=== PATIENT | female | born 2000 | race Caucasian/White ===

== ENCOUNTER 2023-12-19 20:06 | Observation (INO) | payer BC, SELFPAY ==
--- NOTE | 2023-12-19 20:06 | OBADM ---
This patient, Thiago Sadler, admitted to the OB room OB Post 117 for observation. Patient/family oriented to hospital policies and general routines including ID bracelet, bed and alarms, visiting hours, pain management, procedures, bathroom and other care routines, personal items, smoking policy, room service/diet, and visiting hours. Patient/Family are encouraged to report perceived risks to care and to ask questions if they do not understand what they are told or what they should do.
[2023-12-19 20:15] VITALS: BMI 22.4
[2023-12-19 20:40] VITALS: BP 104/59; PULSE 69
[2023-12-19 20:54] LABS: Appearance Urine Clear (Clear); Bilirubin Urine Negative (Negative); Blood Urine Negative (Negative); Color Urine Yellow (Yellow); Glucose Urine UA Negative (Negative); Ketones Urine Negative (Negative); Leukocyte Esterase Ur Negative LEU/UL (Negative); Nitrate Urine Negative (Negative); Protein Urine Negative (Negative); Specific Grav Ur 1.015 (1.001-1.035)
[2023-12-19 21:05] LABS: Add Urine Microscopic? NO
--- NOTE | 2024-01-15 20:46 | P.PNOB_ITS ---
OB - Triage/Final Diagnosis Visit Information Comments/Additional reasons for admission: I have assessed the risk for this patient, Thiago Sadler, and determined that she would benefit from observation care. Evaluation Laboratory results: Laboratory Tests 12/19/23 20:45 Urine Color Yellow Urine Appearance Clear Urine pH 7.0 Ur Specific [place] 1.015 Urine Protein Negative Urine Glucose (UA) Negative Urine Ketones Negative Ur Blood (Man) Negative Urine Nitrate Negative Urine Bilirubin Negative Urine Urobilinogen 1.0 Leukocyte Esterase Rfl Negative Final Diagnosis (1) Pubic bone pain: Code(s): M89.9 - Disorder of bone, unspecified Status: Acute
== END 2023-12-19 22:17 | disposition home or self-care (01) ==
PROVIDERS: Admitting Provider Obstetrics & Gynecology; Visit Provider Obstetrics & Gynecology
DX: O26.892 Other specified pregnancy related conditions, second trimester (principal); M89.9 Disorder of bone, unspecified; Z3A.25 25 weeks gestation of pregnancy
CPT/HCPCS: 81003; G0378; G0379

== ENCOUNTER 2024-03-26 05:02 | Inpatient (IN) | payer BC, MEDICAID, SELFPAY ==
[2024-03-26] VITALS (239 sets, daily range): BP systolic 86–143; BP diastolic 44–111; PULSE 50–128; TEMP 36.2–37.9; O2SAT 81–100; BMI 24.5
--- NOTE | 2024-03-26 05:41 | LDADM ---
This patient, Thiago Sadler, was admitted to Labor/Delivery/Recovery 104 on 03/26/24 at 05:02. Plans for labor, pain management and were discussed with patient. Patient/family oriented to hospital policies and general routines including ID bracelet, bed and alarms, visiting hours, pain management, procedures, bathroom and other care routines, personal items, smoking policy, room service/diet and guest tray routines, security routines, and visiting hours. Patient/Family are encouraged to report perceived risks to care and to ask questions if they do not understand what they are told or what they should do. See OBIX for further documentation.
[2024-03-26 05:49] LABS: Basophils Percent Auto 0.1 % (0.2-1.2); Eosinophils Percent Auto 0.4 % (0-4.4); Hematocrit 38.4 % (37.0-47.0); Hemoglobin 13.2 g/dL (12.0-15.0); Immature Granulocyte Absolute 0.02 K/mm3 (0.00-0.031); Immature Granulocyte Percent A 0.2 % (0-0.5); Lymphocytes Absolute Auto 2.48 K/mm3 (0.9-3.2); Mean Corpuscular HGB Conc 34.4 g/dl (32-36); Mean Platelet Volume 10.6 fl (7.4-10.4); Monocytes Absolute Auto 0.5 K/mm3 (0.1-0.6); Monocytes Percent Auto 5.6 % (2.6-8.5); Neutrophils Absolute Auto 5.5 K/mm3 (1.3-6.7); Neutrophils Percent Auto 64.7 % (45.5-73.1); Platelet Count Result 166 k/mm3 (150-375); Red Blood Count 3.88 M/mm3 (4.2-5.4); Red Cell Distribution Width 12.4 % (11.5-14.5); White Blood Count 8.5 K/mm3 (4.5-10.0)
[2024-03-26 06:26] LABS: Glucose 134 mg/dL (65-110)
[2024-03-26] MEDS: OXYTOCIN 30 UNITS/NS 500 ML 30 UNITS/500 ML BAG 6 UNITS IV CONT (06:34)
[2024-03-26] MEDS: LACTATED RINGERS 1,000 ML 125 ML IV CONT ×3 (06:38→18:15)
[2024-03-26 06:41] LABS: HIV 1/2 Ab P24 Ag Result Negative (Negative)
--- NOTE | 2024-03-26 07:41 | WPDANESEPP ---
Anes - Eval Pre Procedure Procedure: Labor epidural Date/Time: 03/26/24 07:41 Surgeon: Heide Preop Diagnosis: Abdominal pain with contractions Pre Op Diagnosis: IOL Patient Data Age: 23 Gender: F Height: 1.57 m Weight: 61 kg Last Vital Signs Temp 97.1 F L 03/26/24 06:08 Pulse 62 03/26/24 07:31 BP 118/68 03/26/24 07:31 O2 Del Method Room Air 03/26/24 05:40 Allergies Allergy/AdvReac Type Severity Reaction Status Date / Time cat dander Allergy Hives Verified 03/23/24 15:08 Home Medications Medication Instructions Recorded Confirmed Type vits no.126-ferrous fum 1 tablet PO DAILY 03/23/24 03/23/24 History 28 mg iron-folic acid 800 mcg tablet (Classic ) Laboratory Tests 03/26/24 05:16 WBC 8.5 K/mm3 (4.5-10.0) RBC 3.88 L M/mm3 (4.2-5.4) Hgb 13.2 g/dL (12.0-15.0) Hct 38.4 % (37.0-47.0) MCV 99.0 fl (80-100) MCH 34.0 pg (26-34) MCHC 34.4 g/dl (32-36) RDW 12.4 % (11.5-14.5) Plt Count 166 k/mm3 (150-375) MPV 10.6 H fl (7.4-10.4) Immature Gran % (Auto) 0.2 % (0-0.5) Neut % (Auto) 64.7 % (45.5-73.1) Lymph % (Auto) 29.0 % (18.3-44.2) [place] % (Auto) 5.6 % (2.6-8.5) Eos % (Auto) 0.4 % (0-4.4) Baso % (Auto) 0.1 L % (0.2-1.2) Lymph # (Auto) 2.48 K/mm3 (0.9-3.2) [place] # (Auto) 0.5 K/mm3 (0.1-0.6) Eos # (Auto) 0.0 K/mm3 (0-0.3) Baso # (Auto) 0.0 K/mm3 (0.0-0.1) Abs Immat Gran (auto) 0.02 K/mm3 (0.00-0.031) Absolute Neuts (auto) 5.5 K/mm3 (1.3-6.7) Absolute Nucleated RBC 0.000 K/mm3 (0.0-0.012) Nucleated RBC % 0.0 % (0.0-0.2) Glucose 134 H mg/dL (65-110) RPR Pending HIV 1&2 Ab/P24 Ag 4thGn Negative (Negative) Blood Type O Positive Antibody Screen Negative : gestational age HCG: positive Patient hx anesthesia problems: none Family hx anesthesia problems: none Results Review: All pre-operative results and documents have been reviewed as part of the pre-operative evaluation. FOR[facility]LY [facility] Past Medical History Medical History History of smoking Migraines and not yet delivered Family History Family History Other Unknown family medical history Social History Social History Smoking status: Former smoker Tobacco type: e-cigarettes/vaping Second hand tobacco smoke exposure: Yes Substance use: never Do You Feel Safe in your Home?: Yes Lack of Transportation: No Lack of Food: Never True Current Housing: I Have Housing Concerned About Future Housing: No Difficulty Paying Gas/Electric Bills: No Difficulty Paying for Meds: No Currently Unemployed: No Education: High School Diploma/GED Difficulty w/ Childcare or Family Care: No Spiritual care concerns: No Exam Day of Procedure 03/26/24 07:41 Patient weight: normal Airway: Mallampati scale class II
--- NOTE | 2024-03-26 07:47 | WPDHPUPDATE1 ---
History and Physical Update Update Date/Time: 03/26/24 07:47 This patient is a 23-year-old primiparous female at term. we agreed to elective induction labor. She is a diet-controlled Diabetic. Excellent control. Artificial rupture membranes was performed-clear fluid. Cervix is 2/70/-2. Reassuring status. Pitocin has been running. Expectant management History and Physical has been reviewed, including an updated exam of the patient. There are NO changes in the patient's condition. Risks, benefits, and alternatives have been discussed and questions answered. Patient agrees to proceed with procedure.
--- NOTE | 2024-03-26 08:24 | W.PM.OBCSD ---
OB - Delivery Note Procedure Delivery date: 03/26/24 Pre-op diagnosis: Previous Delivery Post-op Diagnosis: Same Procedure Performed: Repeat Surgeon: Efe Jaeger MD Anesthesia type: Spinal Description of Procedure/Findings: The patient was taken the operating room.? She was prepped and draped in dorsal supine position with a leftward tilt.? This was done after spinal anesthetic was applied.? A low-transverse skin incision was made and carried down till of the fascia with the knife.? The fascial incision was made with the knife.? The fascial incision was extended laterally with Escalera scissors.? The fascia was tented upward superiorly and inferiorly the rectus muscles were dissected off bluntly.? The rectus muscles were the midline.? The preperitoneal fat and peritoneum were dissected open bluntly at the superior aspect of the rectus muscles.? The peritoneal incision was extended superior and inferior with good position of bladder.? The uterine incision was made with a scalpel down to the level of the amniotic cavity.? The amniotic cavity was entered bluntly.? The infant was delivered.? The cord was clamped and cut and the infant was handed off to waiting pediatric staff.? Cord bloods were obtained.? The placenta was removed manually.? The uterus was exteriorized.? The uterus was cleared of all clots, debris and membranes.? The uterus was closed in 0 Vicryl running lock fashion.? An imbricating over a was placed along the incision line as well.? The uterus was returned to the abdomen.? The gutters were cleared of all clots and debris.? The fascia was closed with 0 Vicryl running fashion.? The subcutaneous tissue was irrigated pinpoint bleeders were cauterized.? The skin was closed with subcuticular absorbable saleem.? The skin incision line was covered with glue.? The patient tolerated the procedure well.? She has taken recovery room in stable condition.? Sponge lap and needle counts were correct x2.?
[2024-03-26 10:01] LABS: Glucose Point of Care 92 mg/dl (65-105)
[2024-03-26 12:32] LABS: Rapid Plasma Reagin Non-Reactive (NonReactive)
[2024-03-26 13:29] LABS: Glucose Point of Care 89 mg/dl (65-105)
[2024-03-26 16:17] LABS: Glucose Point of Care 77 mg/dl (65-105)
[2024-03-26 18:09] LABS: Glucose Point of Care 79 mg/dl (65-105)
[2024-03-26] MEDS: ACETAMINOPHEN 500 MG TABLET 1000 MG PO (19:30)
[2024-03-26] MEDS: diphenhydrAMINE HCl INJ 50 MG/ML VIAL 25 MG IV PUSH (19:33)
[2024-03-26 20:27] LABS: Glucose Point of Care 74 mg/dl (65-105)
--- NOTE | 2024-03-26 21:30 | P.PCNOB_ITS ---
OB - Vaginal Delivery Note Procedure Delivery date: 03/26/24 Induction method: AROM and Per Pitocin Protocol Delivery monitor: External FHT and External Uterine Route of delivery: Episiotomy description: None Laceration Description: Periurethral Delivery repair: vicryl Quantitative Blood Loss (ml): 200 Anesthesia type: Spinal Complications: No immediate complications [place] Baby Date of : 03/26/24 Time of : 21:11 Gestational Age by Date: 39
[2024-03-26] MEDS: OXYTOCIN 30 UNITS/NS 500 ML 30 UNITS/500 ML BAG 125 UNITS IV CONT (21:56)
[2024-03-26] MEDS: IBUPROFEN 600 MG TABLET PO (23:40)
--- NOTE | 2024-03-26 23:44 | PC.NURSE ---
Patient transferred to post room #288 via wheelchair. Support person present. Oriented to unit, room, information board, rooming in, admission packet and security measures. Patient verbalizes understanding.
[2024-03-27] VITALS: BP 114/59; PULSE 69; RESP 16; TEMP 37.7; O2SAT 98
[2024-03-27 03:50] VITALS: BP 112/59; PULSE 61; RESP 16; TEMP 37; O2SAT 97
[2024-03-27 04:36] LABS: Hemoglobin 10.9 g/dL (12.0-15.0)
--- NOTE | 2024-03-27 06:20 | PC.NURSE ---
Introductions were made, then consulted with patient to assess needs related to . Mother led the conversation with her?plans to feed?her and the?experience so far. Mother states that was very sleepy throughout the night and did not breastfeed successfully, however, she did pump and was able to feed infant 8cc of expressed breast milk by syringe at the last feeding. Mother would like to exclusively breastfeed. Encouraged understanding of the benefits of skin to skin, stimulating with massage touch, changing positions to encourage wakefulness, how to watch for early feeding cues, responsive feeding, feeding on demand (aiming for 8-12 times in 24 hours, about every 2-3 hours), milk production, building/maintaining a milk supply, duration of feeding, signs of adequate intake/output and how to record on the feeding sheet. Mother works well with her infant. After showing mother different positions to hold in for nursing, she appeared to be very comfortable holding infant for feeding. Reviewed positioning and ear, shoulder, hip alignment, supporting the breast to facilitate a deep latch, asymmetrical latch (off-center), leading with the chin with a big, open, wide gape and body close to mother. latched optimally to the right breast in football position. A nipple shield was attempted throughout the night due to infants inability to maintain a latch. A nipple shield was used for the first 2 minutes of nursing and then removed. Infant latched successfully without the nipple shield. Education given to the mother of how to visualize the suckling (with good rocking jaw motion), swallows (dropping of the lower jaw) and how to listen for drinking at the breast (the ka sound). Several swallows were noted by this RN. was able to maintain latch without pain to mother protecting the nipple with optimal positioning and latching. 10 minutes of this feeding was observed by this RN. actively nursing when exiting patients room. Reviewed comfort measures of healing with a warm, wet washcloth to rinse breast, then leave open to air-dry, good handwashing when or touching the breast/nipples to prevent infection. Mother voiced understanding of skin to skin, stimulating with massage touch, responsive feedings, hand expressed colostrum, talking to infant to encourage if it has been 2 -2.5 hours since the start of the last , to call if does not latch, or if there is discomfort with . Communication board updated with contact information. Patient knows to call if assistance is needed for next feeding. Reported to the Primary RN.
[2024-03-27] MEDS: DOCUSATE SODIUM 100 MG CAPSULE PO ×2 (07:25→17:12)
[2024-03-27] MEDS: MULTIVIT/MIN/PREN/FOL AC/IRON TABLET 1 TAB PO (07:25)
[2024-03-27] MEDS: ACETAMINOPHEN 325 MG TABLET 650 MG PO ×2 (07:25→17:12)
[2024-03-27 07:55] VITALS: BP 96/50; PULSE 60; RESP 16; TEMP 36.3; O2SAT 98
[2024-03-27] MEDS: IBUPROFEN 600 MG TABLET PO (11:38)
[2024-03-27 12:05] VITALS: BP 107/51; PULSE 67; RESP 16; TEMP 36.2; O2SAT 98
--- NOTE | 2024-03-27 14:54 | WPDANLDPN2 ---
Anes-Prog Note L&D Date/Time: 03/27/24 14:54 Comfortable throughout: labor and delivery Neuraxial method: epidural Epidural/Spinal procedure site: clean & non-tender Neuro status: Neuro function grossly intact. Cardiovascular status: normal Respiratory status: normal Airway patency: baseline Mental status: baseline Post-Op hydration status: normal Vital Signs: Last Vital Signs Temp 36.2 C L 03/27/24 12:05 Pulse 67 03/27/24 12:05 Resp 16 03/27/24 12:05 BP 107/51 L 03/27/24 12:05 Pulse Ox 98 03/27/24 12:05 O2 Del Method Room Air 03/27/24 11:30 Pain score (VAS): 0/10 I/O: Intake & Output 03/26/24 03/27/24 03/27/24 23:59 07:59 15:59 Intake Total 1000 0 Output Total 200 Balance 800 0 Post-procedural complaints: none Patient feedback: Patient satisfied with anesthetic care.
--- NOTE | 2024-03-27 15:12 | PC.NURSE ---
3328. Mom called out for help & help with latching . Mom made mulitple attempts to latch to the breast in cross cradle position. No successful attempts made. Reviewed attempting to wake with a diaper change, turning the lights on, removing some of her clothing. More attempts made, showed no signs of feeding cues. Mom encouraged to do s2s and wait for infants first early feeding cue and attempt again. Mom knows to call when she attempts next for assistance.
--- NOTE | 2024-03-27 15:36 | PM.OBPNVD ---
OB - PN: Subj Subjective Date/time seen: 03/27/24 15:36 Interval history: PPD#1 s/p Doing well, pain controlled Voiding without issue OB - PN: Obj Data Labs 03/27/24 04:00 03/26/24 05:16 Labs: Laboratory Results - last 24 hr 03/26/24 03/26/24 03/26/24 16:03 18:07 20:24 Hgb Hct POC Capillary Glucose 77 79 74 03/27/24 04:00 Hgb 10.9 L Hct 31.0 L POC Capillary Glucose OB - PN A/P Assessment and Plan (1) (spontaneous vaginal delivery): Code(s): O80 - Encounter for full-term uncomplicated delivery Status: Acute Plan day: 1 Plan: routine care Time Spent With Patient Time: Total time spent is greater than 50% in coordination of care (as documented) at patient's floor/unit and/or counseling patient: Review of Systems Review of Systems: All systems reviewed & are unremarkable except as noted in HPI and below Exam Const: General: comfortable and no acute distress Orientation/consciousness: patient oriented x3 Resp: Effort & Inspection: normal respiratory effort
--- NOTE | 2024-03-27 15:36 | PC.NURSE ---
1530. Mom called, reported infant was showing feeding cues and needed help getting her latched. was able to latch a couple times, but slipped off to the end of moms nipple. Reviewed positioning with mom. Infants head, neck, and shoulders were not in line, demonstrated proper alignment to mom by helping her reposition infant on her chest. Infants head was not in the sniffing position , reviewed what that should look like by helping mom move into the correct position. Infant was syringe fed moms EBM (4cc) by RN to encourage her to continue with her feeding. was able to latch into an optimal latch and transferring milk was confirmed with audible swallows heard. Mom encouraged to continue to let nurse as long as she wanted at the breast and offer the other side after about 15 min. Mom verbalized understanding and knows to call again if more assistance is required.
[2024-03-27 20:56] VITALS: BP 128/78; PULSE 68; RESP 16; TEMP 36.8; O2SAT 100
--- NOTE | 2024-03-28 07:32 | PM.OBPNVD ---
OB - PN: Subj Subjective Date/time seen: 03/28/24 07:32 Interval history: PPD#1 s/p Doing well, pain controlled Voiding without issue Patient comments: no complaints, pain well controlled and tolerating diet OB - PN: Obj Data Labs 03/27/24 04:00 03/26/24 05:16 OB - PN A/P Plan day: 2 Plan: routine care and discharge home Time Spent With Patient Time: Total time spent is greater than 50% in coordination of care (as documented) at patient's floor/unit and/or counseling patient: Exam Const: General: comfortable and no acute distress Resp: Effort & Inspection: normal respiratory effort Auscultation: no rales, no rhonchi and no wheezes Cardio: Rate: regular rate Heart sounds: no click, no murmurs and no rubs GI: GI Palp: Yes Soft to palpation and No Tenderness to palpation present (GI) Auscultation: normal bowel sounds Extrem: General: normal to inspection, no pedal edema and no calf tenderness
--- NOTE | 2024-03-28 07:32 | PM.OBDSVD ---
DS: Admitting Diagnosis Discharge Date March 28, 2024 Admitting Diagnosis term DS: Discharge Diagnosis Discharge Diagnosis (1) Term delivered: Code(s): O80 - Encounter for full-term uncomplicated delivery Status: Acute OB - DS: Summary OB Procedures : None OB Procedures Intrapartum: Spontaneous Vag Delivery OB Procedures: : None Peripartum Data Laceration Description: Periurethral Episiotomy description: None Time Spent with Patient Time attestation: Total time spent providing and/or coordinating discharge services: Discharge Plan Discharge Discharging Clinician: Efe Jaeger Patient Disposition: Home, Self-Care Activity: pelvic rest Diet: regular Patient Instructions: Antibiotic Form Stand Alone Forms: General Discharge Information Follow-up/Referrals: Efe Jaeger MD [Physician] - Discharge Medications: Continued Classic 28 mg iron- 800 mcg Tablet 1 tablet PO DAILY Date of admission: 03/26/24 05:02 Primary Care Provider: UNKNOWN,DOCTOR Admitting Provider: Efe Jaeger Attending physician on admission: Efe Jaeger Condition: Stable
--- NOTE | 2024-03-28 08:45 | PC.NURSE ---
Called to patient room to assist with latching. Upon entering room, was sleeping and mom was attempting to wake for feeding. Mom states that infant can be hard to wake for feedings. Once infant was awake, infant latched to the right side in cross cradle position. Mother denies pain. Otherwise, mother is feeding appropriately for growth of and understands stimulating to eat if needed. has had appropriate feedings in the last 24 hours meets the outcomes for weight, output, blood sugar and jaundice at this time. Reinforced understanding of milk production, transition of milk, signs of adequate intake, transition of stool, prevention/relief of engorgement, plugged ducts, mastitis, responsive watching for feeding cues, the different methods of stimulating infant to breastfeed 1-3 hours after the start of the last feeding, community resources, and when to call a provider using the resource of the feeding sheet along with the mom and baby guide. Mother voiced understanding of the information shared, is confident to continue effectively her infant at home, when to call for assistance, denies any additional assistance or education at this time. Reported to the Primary RN.
[2024-03-28] MEDS: DOCUSATE SODIUM 100 MG CAPSULE PO (09:09)
[2024-03-28] MEDS: MULTIVIT/MIN/PREN/FOL AC/IRON TABLET 1 TAB PO (09:09)
[2024-03-28] MEDS: IBUPROFEN 600 MG TABLET PO (09:09)
[2024-03-28 09:20] VITALS: BP 129/77; PULSE 61; RESP 18; TEMP 36.6; O2SAT 100
== END 2024-03-28 14:30 | disposition home or self-care (01) | DRG 807 ==
LOC: ANHLDR 05:10 → ANHOB2 03-27 00:12
PROVIDERS: Admitting Provider Obstetrics & Gynecology; Visit Provider Obstetrics & Gynecology
DX: O24.420 Gestational diabetes mellitus in childbirth, diet controlled (principal); Z37.0 Single live birth; O71.82 Other specified trauma to perineum and vulva; O69.81X0 Labor and delivery complicated by cord around neck, without compression, not applicable or unspecified; Z3A.39 39 weeks gestation of pregnancy
CPT/HCPCS: 36415; 82947; 82948; 85014; 85018; 85025; 86592; 86703; 86850; 86900; 86901; A9270; G0432; J1200; J2590; J2795; J7120

== ENCOUNTER 2024-12-31 16:35 | Emergency (ER) | payer BC, SELFPAY ==
[2024-12-31 16:40] VITALS: BP 115/61; PULSE 74; RESP 16; TEMP 36.9; O2SAT 100
--- NOTE | 2024-12-31 17:05 | ED.SKABFB ---
HPI - Skin/Abscess/Foreign Bdy General Chief complaint: Skin/Abscess/Foreign Body Stated complaint: sunburn Time Seen by Provider: 12/31/24 16:54 Source: patient and RN notes reviewed Mode of arrival: ambulatory Limitations: no limitations History of Present Illness HPI narrative: Patient presents today complaining of a sunburn x3 days. Sunburn is most severe on the anterior bilateral thighs and back. She is complaining of pain and itching that is keeping her from sleep. She has tried Tylenol, Benadryl, aloe, hydrocortisone, witch Justina, and cold compresses with little relief. Related Data Allergies Allergy/AdvReac Type Severity Reaction Status Date / Time cat dander Allergy Hives Verified 12/31/24 16:42 PMFSH Past Medical History Medical History Hx of migraines History of smoking Migraines and not yet delivered Surgical History Surgical History No history of previous surgery Family History Family History Other Family history non-contributory Unknown family medical history Social History Social History Smoking status: Never smoker Tobacco type: e-cigarettes/vaping Second hand tobacco smoke exposure: Yes Alcohol intake: never Substance use: never Do You Feel Safe in your Home?: Yes Lack of Transportation: No Lack of Food: Never True Current Housing: I Have Housing Concerned About Future Housing: No Difficulty Paying Gas/Electric Bills: No Difficulty Paying for Meds: No Currently Unemployed: No Education: High School Diploma/GED Difficulty w/ Childcare or Family Care: No Living arrangements: with family Gender identity (if verbalized by the patient): Female Spiritual care concerns: No Comments At time of signature, I have reviewed and agree with nursing past medical, surgical, social and family history unless otherwise noted. Please see nursing chart for further information. There is no relevant family history pertinent to the presenting complaint Exam Narrative: GENERAL: Well-appearing, well-nourished, and in no acute distress. HEAD: Normocephalic, atraumatic. EYES: EOMI. No redness or drainage. Conjunctivae normal. ENT: Mucous membranes pink and moist. NECK: Normal AROM. CHEST: No respiratory distress. EXTREMITIES: Normal range of motion. No edema. SKIN: Warm, dry, no rash. Capillary refill normal. Normal skin turgor. Very mild sunburn to the entirety of the back, moderate sunburn to the anterior bilateral thighs. No edema noted to either place. No blistering noted. NEURO: No focal deficits. Alert and oriented x3. Gait steady. PSYCH: Normal affect. No signs of depression or anxiety. Course Course Level of Care: Express Care Visit Vital Signs Vital signs: Vital Signs Temperature 98.4 F 12/31/24 16:40 Pulse Rate 74 12/31/24 16:40 Respiratory Rate 16 12/31/24 16:40 Blood Pressure 115/61 12/31/24 16:40 Pulse Oximetry 100 12/31/24 16:40 Oxygen Delivery Room Air 12/31/24 16:40 Temperature 98.4 F 12/31/24 16:40 Pulse Rate 74 12/31/24 16:40 Respiratory Rate 16 12/31/24 16:40 Blood Pressure 115/61 12/31/24 16:40 Pulse Oximetry 100 12/31/24 16:40 Oxygen Delivery Room Air 12/31/24 16:40 Reviewed MDM - Skin/Abscess/Foreign Bdy MDM Narrative Medical decision making narrative: 24-year-old female patient presents with sunburn. Sunburn as no signs of cellulitis or secondary bacterial infection. Offered Toradol injection but patient has declined. Prescription for diclofenac sent to pharmacy for pain. Discussed continuing [id number] treatment as well aside from other NSAIDs. Generally speaking, sunburn is rather mild. Patient is continuing to orally hydrate as well. Vital signs stable and she is stable for outpatient treatment. Anticipatory guidance given. Differential Diagnosis Differential diagnosis: Likely cellulitis, impetigo and other (Sunburn) Critical Care Time Critical Care Time Critical Care Time: No Discharge Plan Discharge Clinical Impression: Sunburn Patient Disposition: Home Condition: Stable Instructions: Sunburn (ED) Additional Instructions: Please take the diclofenac as directed. Continue an antihistamine at home for itching if needed. You may also continue topical treatment such as hydrocortisone, aloe, and topical Benadryl. Follow-up with your PCP with any additional concerns. Patient Language: Surinamese Prescriptions: New diclofenac sodium 50 mg tablet,delayed release (DR/EC) 50 mg PO BID PRN (Reason: pain) Qty: 20 0RF Follow-up/Referrals: PHYSICIAN,MEMBERSHIP SALES REPRESENTATIVE [Primary Care Provider] - Time of Disposition: 17:12
== END 2024-12-31 17:14 | disposition home or self-care (01) ==
PROVIDERS: Emergency Provider Nurse Practitioner
DX: L55.9 Sunburn, unspecified (principal)
CPT/HCPCS: 99213; G0463